=== PATIENT | male | born 1995 | race Caucasian/White ===

== ENCOUNTER 2024-02-02 18:56 | Emergency (ER) | payer SELFPAY ==
[2024-02-02 19:12] VITALS: BP 129/75; PULSE 66; RESP 16; TEMP 36.8; O2SAT 100
--- NOTE | 2024-02-02 19:13 | ED.MALEGU ---
HPI - Male Genitourinary General Chief complaint: Urogenital-Male Stated complaint: STD testing Time Seen by Provider: 02/02/24 19:14 Source: patient Mode of arrival: ambulatory Limitations: no limitations History of Present Illness HPI Narrative: Leroy is a 28-year-old male patient presenting to the clinic today with complaints of possible STI. He reports he is having some discomfort with urination for the past 3 weeks. Also reports some skin tags to his penis and pelvis that started 3 weeks ago. History of chlamydia and gonorrhea in the past and he states the symptoms feel similar to that. He denies any penile discharge. Slight discomfort with urination went getting his stream started. He denies any fever or chills. Related Data Allergies Allergy/AdvReac Type Severity Reaction Status Date / Time No Known Allergies Allergy Unverified 04/29/17 11:35 Review of Systems Review of Systems: Pertinent positives per HPI. Patient denies any fever, chills, rash, headache, visual changes, dizziness, cough, runny nose, sore throat, shortness of breath, chest pain, palpitations, nausea, vomiting, diarrhea, constipation, abdominal pain. PMFSH Comments At the time of my signature, I reviewed and agree with the nursing past medical, surgical, social, and family history. There is no relevant family history pertinent to the patient complaint. Exam Narrative: General: Well-developed, well nourished, in no apparent distress. Head: Normocephalic, atraumatic. Cardio: Regular rate and rhythm, s1 and s2 normal, no murmur appreciated. Resp: Clear to auscultation bilaterally, no rhonchi, rales, wheezing or rubs. Abdomen: Soft, pliable, bowel sounds present in all quadrants, non-tender to palpation, no organomegly, no CVAT tenderness. : Cluster of skin tag like lesions to the pelvis just above the base of the dorsal penis and lesions noted to the sides of the penile shaft-lesions suspicious for genital warts. No urethral discharge. Course Course Emergency Course: Portions of this record may have been created with voice recognition software. Level of Care: Express Care Visit Vital Signs Vital signs: Vital Signs Temperature 36.8 C 02/02/24 19:12 Pulse Rate 66 02/02/24 19:12 Respiratory Rate 16 02/02/24 19:12 Blood Pressure 129/75 02/02/24 19:12 Pulse Oximetry 100 02/02/24 19:12 Oxygen Delivery Room Air 02/02/24 19:12 Temperature 36.8 C 02/02/24 19:12 Pulse Rate 66 02/02/24 19:12 Respiratory Rate 16 02/02/24 19:12 Blood Pressure 129/75 02/02/24 19:12 Pulse Oximetry 100 02/02/24 19:12 Oxygen Delivery Room Air 02/02/24 19:12 Vital signs reviewed MDM - Male Genitourinary MDM Narrative Medical decision making narrative: At the time of visit patient is resting comfortably on the exam table. Patient appears to be nontoxic. Labs: Gonorrhea, Trichomonas, and chlamydia testing was sent to the lab. UA is negative for any sign of infection. Plan: I suspect patient may have genital warts. Follow-up with an STI clinic or his PCP for further investigation. Supportive measures were discussed with the patient and they voiced understanding discharge instructions and agrees to treatment plan. Return precautions reviewed Differential Diagnosis Differential diagnosis: Likely urinary tract infection, urethritis, epididymitis, genital herpes simplex, prostatitis, acute retention of urine, inguinal hernia and other (Genital warts, HSV) Discharge Plan Discharge Clinical Impression: Lesion of penis Patient Disposition: Home, Self-Care Condition: Stable Instructions: Antibiotic Form, Safe Sex Practices (ED), Genital Warts (ED) Additional Instructions: Urinalysis is negative for infection in the clinic today. We have tested you for STIs in the clinic today. Avoid any sexual activity- includes oral, anal, or vaginal intercourse until you get results back and have complet
[2024-02-03 21:27] LABS: Trichomonas Vag PCR NOT DETECTED (NOT DETECTE)
[2024-02-03 21:50] LABS: Chlamydia trachomatis NOT DETECTED (NOT DETECTE); Neisseria gonorrhoeae PCR NOT DETECTED (NOT DETECTE)
== END 2024-02-02 19:40 | disposition home or self-care (01) ==
PROVIDERS: Emergency Provider Nurse Practitioner Family
DX: N48.89 Other specified disorders of penis (principal)
CPT/HCPCS: 81003; 87491; 87591; 87661; 99213; G0463